=== PATIENT | female | born 1975 | race Caucasian/White ===

== ENCOUNTER 2017-06-24 09:49 | Emergency (ER) | payer SELFPAY ==
[2017-06-24 10:23] VITALS: BP 113/67
--- NOTE | 2017-06-24 10:59 | UC ---
Abdominal Pain Female HPI - HPI Summary HPI Summary: 42 YO FEMALE WITH ONSET OF RUQ ABD PAIN SINCE A TWO WEEK TRIP TO COUNT INCLUDES THE [facility] IN OCTOBER INITIALLY INTERMITTENT NOW CONSTANT X MOS ANOREXIC WORSE WITH FOOD EARLY SATIETY PAST FEW WEEKS FEVER/CHILLS /NIGHT SWEATS NO UTI SYMPTOMS ADB DISTENSION/BLOATING 50 LB WT GAIN TAKING NSAIDS TO CONTROL PAIN - History of Current Complaint Chief Complaint: UCAbdominalPain Stated Complaint: ABD PAIN Time Seen by Provider: 06/24/17 10:31 Hx Obtained From: Patient Hx Last Menstrual Period: menopausal Onset/Duration: Gradual Onset, Lasting Weeks Timing: Constant - NOW Severity Initially: Mild Severity Currently: Severe Pain Intensity: 8 - 10 WHEN NOT ON NSAIDS Pain Scale Used: 0-10 Numeric Location: Discrete At: RUQ Radiates to: Flank Character: Unable to describe Aggravating Factor(s): Food, Deep Breaths Alleviating Factor(s): OTC Analgesics Associated Signs and Symptoms: Positive: Diaphoresis, Fever, Decreased Appetite , Nausea Allergies/Adverse Reactions: Allergies Allergy/AdvReac Type Severity Reaction Status Date / Time Penicillins [PCN] Allergy Hives Verified 06/24/17 10:11 Home Medications: Home Medications Ibuprofen [Advil] 600 mg PO 06/24/17 [History] PMH/Surg Hx/FS Hx/Imm Hx Previously Healthy: Yes - Surgical History Surgical History: None - Family History Known Family History: Negative: Cardiac Disease, Hypertension, Diabetes - Social History Alcohol Use: None Substance Use Type: None Smoking Status (MU): Current Some Day Smoker Review of Systems Constitutional: Negative Skin: Negative Eyes: Negative ENT: Negative Respiratory: Negative Cardiovascular: Negative Gastrointestinal: Abdominal Pain, Nausea Genitourinary: Negative Motor: Negative Neurovascular: Negative Musculoskeletal: Negative Neurological: Negative Psychological: Negative Is Patient Immunocompromised?: No All Other Systems Reviewed And Are Negative: Yes Physical Exam Triage Information Reviewed: Yes Appearance: Well-Appearing, No Pain Distress, Well-Nourished Vital Signs: Initial Vital Signs Temp 99.9 F 06/24/17 10:13 Pulse 99 06/24/17 10:13 Resp 18 06/24/17 10:13 BP 113/67 06/24/17 10:13 Pulse Ox 99 06/24/17 10:13 Eyes: Positive: Conjunctiva Clear, Other: - ANICTERIC SCLERA ENT: Positive: Normal ENT inspection Neck: Positive: Supple, Nontender Respiratory: Positive: Lungs clear, Normal breath sounds, No respiratory distress Cardiovascular: Positive: RRR, No Murmur Abdomen Description: Positive: Distended, Guarding. Negative: Nontender - DIFFUSELY TENDER/WORSE RUQ Bowel Sounds: Positive: Present Musculoskeletal: Positive: ROM Intact, No Edema Neurological: Positive: Alert Psychological Exam: Normal Skin Exam: Normal Abd Pain Female Course/Dx - Course Course Of Treatment: (++) BLOOD UDIP. I ADVISED PT TO GO TO THE ED FOR FURTHER EVALUATION. SHE DECLINED EMS TRANSFER. STATES SHE WILL GO THERE DIRECTLY. ER NOT CALLED PER THERE POLICY OF NOT WANTING CALL FOR NON EMES TRANSFERS. I RELAYED MY CONCERNS RE PTS HX AND EXAM TO HER AND STATED THAT I THINK THIS NEEDS INVESTIGATION TODAY. - Differential Dx/Diagnosis Provider Diagnoses: ABDOMINAL PAIN OF UNCERTAIN CAUSE. MICROSCOPIC HEMATURIA. WT GAIN AND ABD DISTENSTION Discharge - Discharge Plan Condition: Guarded Disposition: TRANS HIGHER LVL OF CARE FAC Referrals: No Primary Care Phys,NOPCP [Primary Care Provider] - Additional Instructions: PLEASE GO DIRECTLY TO THE ER TO HAVE YOUR ABDOMINAL PAIN EVALUATED DON'T EAT
== END 2017-06-24 11:04 | disposition short-term general hospital (02) ==
LOC: UCEAST 09:49
DX: R10.11 Right upper quadrant pain (principal); R31.9 Hematuria, unspecified; R63.5 Abnormal weight gain; R14.0 Abdominal distension (gaseous); Z88.0 Allergy status to penicillin; Z72.0 Tobacco use
CPT/HCPCS: 81003; 81025; 99201; G0463

== ENCOUNTER 2017-06-24 12:03 | Inpatient (IN) | payer SELFPAY ==
[2017-06-24 12:49] LABS: Hematocrit 37 % (35-47); Hemoglobin 12.4 g/dl (12.0-16.0); Mean Corpuscular HGB Conc 34 g/dl (31-36); Mean Corpuscular Hemoglobin 32 pg (27-31); Mean Corpuscular Volume 96 fL (80-97); Mean Platelet Volume 8 um3 (7.4-10.4); Red Blood Count 3.85 10^6/ul (4.0-5.4); Red Cell Distribution Width 13 % (10.5-15); White Blood Count 16.5 10^3/ul (3.5-10.8)
[2017-06-24 13:03] LABS: ALT 20 U/L (7-52); AST 22 U/L (13-39); Albumin 3.4 g/dL (3.2-5.2); Alkaline Phosphatase 65 U/L (34-104); Anion Gap 7 mmol/L (2-11); BUN/Creatinine Ratio 10.5 (8-20); Blood Urea Nitrogen 8 mg/dL (6-24); C Reactive Protein 187.47 mg/L (< 5.00); CO2 Carbon Dioxide 27 mmol/L (22-32); Calcium 8.8 mg/dL (8.6-10.3); Chloride 100 mmol/L (101-111); EGFR African American 106.8 (>60); EGFR Non-African American 83.1 (>60); Globulin 3.2 g/dL (2-4); Glucose 102 mg/dL (70-100); Lipase < 10 U/L (11.0-82.0); Magnesium 1.9 mg/dL (1.9-2.7); Potassium 3.6 mmol/L (3.5-5.0); Sodium 134 mmol/L (133-145); Total Protein 6.6 g/dL (6.4-8.9)
[2017-06-24] MEDS ORDERED: Ondansetron INJ* 2 MG/ML VIAL IV ONE (13:17)
[2017-06-24] MEDS ORDERED: Iohexol 300* (CONTRAST) 10 ML SDV IV ONE (15:35)
[2017-06-24 15:53] LABS: Urine Bacteria 3+ (Absent); Urine Bilirubin Negative (Negative); Urine Glucose Negative (Negative); Urine Nitrite Negative (Negative)
--- NOTE | 2017-06-24 16:43 | RAD ---
CLINICAL HISTORY: Abdominal pain and diarrhea since October, worse in the last 3 months. Requisition [facility] COMPARISON: None TECHNIQUE: Contrast enhanced CT examination of the abdomen and pelvis from the lung bases through the initial tuberosities. The patient received 109 mL Omnipaque 300 intravenously prior to imaging.The patient received oral contrast as well prior to imaging. FINDINGS: VISUALIZED LUNG BASES: The visualized lung bases are grossly clear. There is no pleural effusion. ABDOMEN AND PELVIS: The liver, spleen, pancreas and adrenal glands are grossly normal in appearance. The gallbladder is normal. The kidneys are normal in appearance without focal mass, calcification or signs of hydronephrosis. The oral contrast has progressed as far as the distal descending colon. The small and large bowel are not distended. The adjacent to the cecum in the right lateral abdomen there is a 4 cm collection with a mildly enhancing wall exhibiting air-fluid level (axial image 46). Within this likely abscess there is a 5 mm hypoattenuating focus (coronal image 47) likely representing an appendicolith. This abscess appears to be separate from the adjacent large bowel but contiguous with the distal tip of the appendix (images 44 through 52 on the axial images). More inferiorly the distal appendix measures 9 mm in diameter and does not fill with contrast. More distally the gas and stool-filled colon is normal in appearance. In the right lower quadrant there are a cluster of top normal but not pathologically enlarged lymph nodes (for example coronal image 39). The pelvic viscera is normal in appearance. The left ovarian vein is top normal in diameter measuring 6 mm (axial image 50 and coronal image 48). There are mildly enlarged left periuterine veins measuring just over 6 mm in diameter (axial image 67 and coronal image 60). The abdominal aorta and iliac arteries are normal in course and diameter. There are no sinister bone lesions. IMPRESSION: 1. CT findings are consistent with a 4 cm abscess at the tip of the mildly enlarged appendix possibly related to the appendicolith seen within the abscess lumen. 2. Incidentally noted are mildly enlarged left periuterine veins and a mildly enlarged left ovarian vein. This can be seen in the setting of pelvic congestion syndrome which is characterized by chronic, gravity dependent low abdominal and pelvic pain, the presence of pelvic and lower extremity varicose veins, vague GI symptoms and/or dyspareunia. (The patient's acute abdominal symptoms are most assuredly related to the appendiceal abscess described above).
--- NOTE | 2017-06-24 18:43 | ED ---
Franklyn Sales Tiffany, scribed for Tracy Oneal MD on 06/24/17 at 1443 . Abdominal Pain/Female - HPI Summary HPI Summary: This patient is a 42 year old F presenting to [facility] accompanied by her with a chief complaint of abdominal pain and diarrhea since October 2016 that has worsened in the last 3 months. The patient rates the pain 8/10 in severity. Symptoms aggravated by movement. Symptoms alleviated by nothing. The patient reports that the abdominal pain radiates to her right leg, right arm and right shoulder. She reports a rash on her left thigh. Patient denies taking antibiotics and denies vomiting. The patient visited [facility] in October 2016. She has been passing waxing and waning black tarry stool and having severe pain on her right side since the trip. She took Ibuprofen twice a day (1200 mg) to alleviate the pain, sometimes with food. Patient reports diarrhea every three times she uses the bathroom, which has been steady for the past three months. The diarrhea ranges from brown/red to black. It is loose and sometimes "cakey or pasty". The patient has also gained 40-50 pounds since the trip in October 2016. She reports that she always feels bloated, even if she is hungry. She only eats a little bit when she feels hungry, since her stomach is always upset. She occasionally has normal stool. She reports occasional fever and chills. On 06/17/19, the patient was unable to get out of bed due to abdominal pain. She woke up this morning with the same severe pain she felt on 06/17/19. She hasn't had her menstrual period for almost a year. She thinks she has menopause. - History of Current Complaint Chief Complaint: EDAbdPain Stated Complaint: ABD PAIN FROM CC Time Seen by Provider: 06/24/17 12:31 Hx Obtained From: Patient, Family/Industrial Workers - Hx Last Menstrual Period: possibly menopausal ?: No Onset/Duration: Gradual Onset, Lasting Weeks - Since October 2016, Still Present, Worse Since - The past 3 months, and then 06/19/17 and this am Timing: Constant Severity Initially: Moderate Severity Currently: Severe Pain Intensity: 8 Pain Scale Used: 0-10 Numeric Location: Discrete At: RUQ, Discrete At: RLQ Radiates: Yes Radiates to: Other - right leg, right arm and right shoulder Character: Dull Aggravating Factor(s): Movement Alleviating Factor(s): Nothing Associated Signs and Symptoms: Positive: Blood in Stool - "tarry" sometimes, and dark red sometimes, Diarrhea, Other: - abdominal pain, right leg pain, right arm pain, right shoulder pain, rash on left thigh, black tarry stools, diarrhea, fever, chills. Negative: Fever, Cough, Vaginal Bleeding, Vomiting Allergies/Adverse Reactions: Allergies Allergy/AdvReac Type Severity Reaction Status Date / Time Penicillins [PCN] Allergy Hives Verified 06/24/17 10:11 PMH/Surg Hx/FS Hx/Imm Hx Previously Healthy: Yes - Surgical History Surgery Procedure, Year, and Place: None Infectious Disease History: No Infectious Disease History: Reports: Hx Shingles - 2008, treated Denies: Traveled Outside the [place] in Last 30 Days - Family History Known Family History: Positive: Other - Mother had brain aneurysm, aunt has melanoma cancer Negative: Cardiac Disease, Hypertension, Diabetes - Social History Lives: With Family Alcohol Use: Occasionally Hx Substance Use: No Substance Use Type: Reports: None Hx Tobacco Use: No Smoking Status (MU): Former Smoker Review of Systems Positive: Fever, Chills Cardiovascular: Negative Respiratory: Negative Positive: Abdominal Pain - Right side, Diarrhea, Other - Black tarry stool. Negative: Vomiting Genitourinary: Negative Positive: Other - Right leg pain, right arm pain, right shoulder pain Positive: Other - Rash on left thigh Neurological: Negative Psychological: Normal All Other Systems Reviewed And Are Negative: Yes Physical Exam Triage Information Reviewed: Yes Vital Signs On Initial Exam: Initial Vitals Temp Pulse Resp BP Pulse Ox 97.6 F 99 17 113/62 97 06/24/17 12:10 06/24/17 12:10 06/24/17 12:10 06/24/17 12:10 06/24/17 12:10 Vital Signs Reviewed: Yes Appearance: Positive: Well-Appearing, Well-Nourished, Pain Distress Skin: Positive: Warm, Skin Color Reflects Adequate Perfusion, Other - maculopapular, erythematous rash on left thigh Head/Face: Positive: Normal Head/Face Inspection Eyes: Positive: MIKE, Conjunctiva Clear ENT: Positive: Normal ENT inspection Neck: Positive: Supple, Nontender Respiratory/Lung Sounds: Positive: Clear to Auscultation, Breath Sounds Present - Normal, Other - No respiratory distress Cardiovascular: Positive: Normal, RRR, Pulses are Symmetrical in both Upper and Lower Extremities, Other - Brisk capillary refill Abdomen Description: Positive: No Organomegaly, Soft, Other: - RECTAL EXAM: external skin tags at the anus, non-tender exam, no masses, no fissures or fistula, brown soft stool sent for occult blood testing. Negative: CVA Tenderness (R), CVA Tenderness (L), Distended, Guarding, McBurney's Point Tenderness, Peritoneal Signs, Pulsatile Mass, Splenomegaly Bowel Sounds: Positive: Present Musculoskeletal: Positive: Normal, Strength/ROM Intact Neurological: Positive: Normal, Sensory/Motor Intact, Alert, Oriented to Person Place, Time, Facial Symmetry, Speech Normal Psychiatric: Positive: Normal - Clark Coma Scale Coma Scale Total: 15 Diagnostics - Vital Signs Vital Signs Temp Pulse Resp BP Pulse Ox 06/24/17 12:26 91 98 06/24/17 12:24 118/57 06/24/17 12:10 97.6 F 99 17 113/62 97 - Laboratory Lab Results: Lab Results 06/24/17 06/24/17 06/24/17 Range/Units 12:38 12:38 12:38 WBC 16.5 H (3.5-10.8) 10^3/ul RBC 3.85 L (4.0-5.4) 10^6/ul Hgb 12.4 (12.0-16.0) g/dl Hct 37 (35-47) % MCV 96 (80-97) fL MCH 32 H (27-31) pg MCHC 34 (31-36) g/dl RDW 13 (10.5-15) % Plt Count 254 (150-450) 10^3/ul MPV 8 (7.4-10.4) um3 Neut % (Auto) 82.2 (38-83) % Lymph % (Auto) 9.4 L (25-47) % [place] % (Auto) 7.8 (1-9) % Eos % (Auto) 0 (0-6) % Baso % (Auto) 0.6 (0-2) % Absolute Neuts (auto) 13.5 H (1.5-7.7) 10^3/ul Absolute Lymphs (auto) 1.6 (1.0-4.8) 10^3/ul Absolute Monos (auto) 1.3 H (0-0.8) 10^3/ul Absolute Eos (auto) 0 (0-0.6) 10^3/ul Absolute Basos (auto) 0.1 (0-0.2) 10^3/ul Absolute Nucleated RBC 0.01 10^3/ul Nucleated RBC % 0 Sodium 134 (133-145) mmol/L Potassium 3.6 (3.5-5.0) mmol/L Chloride 100 L (101-111) mmol/L Carbon Dioxide 27 (22-32) mmol/L Anion Gap 7 (2-11) mmol/L BUN 8 (6-24) mg/dL Creatinine 0.76 (0.51-0.95) mg/dL Est GFR ( Amer) 106.8 (>60) Est GFR (Non-Af Amer) 83.1 (>60) BUN/Creatinine Ratio 10.5 (8-20) Glucose 102 H (70-100) mg/dL Lactic Acid 0.7 (0.5-2.0) mmol/L Calcium 8.8 (8.6-10.3) mg/dL Magnesium 1.9 (1.9-2.7) mg/dL Total Bilirubin 0.50 (0.2-1.0) mg/dL AST 22 (13-39) U/L ALT 20 (7-52) U/L Alkaline Phosphatase 65 (34-104) U/L C-Reactive Protein 187.47 H (< 5.00) mg/L Total Protein 6.6 (6.4-8.9) g/dL Albumin 3.4 (3.2-5.2) g/dL Globulin 3.2 (2-4) g/dL Albumin/Globulin Ratio 1.1 (1-3) Lipase < 10 L (11.0-82.0) U/L Beta HCG, Quant 1.65 mIU/mL Result Diagrams: 06/24/17 12:38 06/24/17 12:38 Lab Statement: Any lab studies that have been ordered have been reviewed, and results considered in the medical decision making process. - CT Abd/Pel CT Interpretation Completed By: Radiologist - 1. CT findings are consistent with a 4 cm abscess at the tip of the mildly enlarged appendix possibly related to the appendicolith seen within the abscess lumen. 2. Incidentally noted are mildly enlarged left periuterine veins and a mildly enlarged left ovarian vein. This can be seen in the setting of pelvic congestion syndrome which is characterized by chronic, gravity dependent low abdominal and pelvic pain, the presence of pelvic and lower extremity varicose veins, vague GI symptoms and/or dyspareunia. (The patient's acute abdominal symptoms are most assuredly related to the appendiceal abscess described above). ED physician has reviewed this radiology report and agrees. Re-Evaluation - Re-Evaluation First Eval Re-Evaluation Time: 15:35 Change: Improved Comment: Patient's pain is controlled. She is awaiting CT Abd/Pel report results. Second Eval Re-Evaluation Time: 19:15 - advised of CT results and admit. Pt understands Change: Unchanged Abdominal Pain Fem Course/Dx - Course Course Of Treatment: pt had labs, CT abd pelvis. Given cipro and flagyl for abd organism coverage for appendiceal abscess. given morphine 4mg IV for pain. consulted Dr. Dyson and Dr. Ma - Diagnoses Differential Diagnosis: Positive: Appendicitis, Bowel Obstruction, Constipation , Diverticulitis, Other - parasitic diarrhea, c difficile colitis Provider Diagnoses: Abscess, appendix - Provider Notifications Discussed Care Of Patient With: Shaista Ma - consult Dr. Dyson; 19:00 Dr. Dyson will attempt percutaneous drainage in am after IV abx and admit. Dr. Ma to admit. Discussed again 19:[address] Ma Time Discussed With Above Provider: 18:45 Instructed by Provider To: Admit As Inpatient Discharge - Discharge Plan Condition: Stable Disposition: ADMITTED TO [facility] Referrals: No Primary Care Phys,NOPCP [Primary Care Provider] - Additional Instructions: Try Lamisil cream for fungal toe nail The documentation as recorded by the Franklyn cantu Tiffany accurately reflects the service I personally performed and the decisions made by , Tracy Oneal MD.
[2017-06-24] MEDS ORDERED: Ciprofloxacin 400MG IVPREMIX(* 400 MG/200 ML BAG IVPB ONE (19:27)
[2017-06-24] MEDS ORDERED: metroNIDAZOLE IV 500 MG/100ML* 500 MG/100 ML BAG IVPB ONE (19:27)
[2017-06-24] MEDS ORDERED: Morphine INJ* 4 MG/ML 1 ML CARPUJECT IV ONE (19:31)
[2017-06-24] MEDS ORDERED: Acetaminophen TAB* 325 MG PO ONE (20:49)
[2017-06-24] MEDS ORDERED: NS 0.9% 1000 ML*IV.FLUID IV ONE (20:58)
[2017-06-24 21:06] LABS: Hematocrit 35 % (35-47); Hemoglobin 11.7 g/dl (12.0-16.0); Mean Corpuscular HGB Conc 34 g/dl (31-36); Mean Corpuscular Hemoglobin 32 pg (27-31); Mean Corpuscular Volume 96 fL (80-97); Mean Platelet Volume 8 um3 (7.4-10.4); Red Blood Count 3.64 10^6/ul (4.0-5.4); Red Cell Distribution Width 13 % (10.5-15); White Blood Count 15.6 10^3/ul (3.5-10.8)
[2017-06-24 21:22] LABS: Albumin 3.1 g/dL (3.2-5.2); BUN/Creatinine Ratio 7.8 (8-20); C Reactive Protein 216.29 mg/L (< 5.00); Calcium 8.4 mg/dL (8.6-10.3); EGFR African American 105.2 (>60); EGFR Non-African American 81.8 (>60); Globulin 3.1 g/dL (2-4); Potassium 3.4 mmol/L (3.5-5.0); Total Bilirubin 0.5 mg/dL (0.2-1.0); Total Protein 6.2 g/dL (6.4-8.9)
--- NOTE | 2017-06-24 21:47 | RAD ---
INDICATION: Fever and abdominal pain COMPARISON: None. TECHNIQUE: Single AP portable view of the chest was obtained. FINDINGS: Image quality is compromised due to the relative inferiority of a portable chest x-ray. The heart and mediastinum exhibit normal size and contour. The lungs are grossly clear. There is no evidence of a large pleural effusion. Visualized bones are normal for the patient's age. IMPRESSION: No radiographic evidence for acute cardiopulmonary abnormality on this portable chest x-ray.
--- NOTE | 2017-06-24 21:49 | RAD ---
INDICATION: Further characterization of a periappendiceal abscess. COMPARISON: Same day CT of the abdomen and pelvis. TECHNIQUE: Real time ultrasound images of the right lower quadrant were acquired in cope scale and Doppler color flow. FINDINGS: There is questionable identification of the abscess. Loops of peristalsing bowel are incidentally noted. IMPRESSION: Questionable identification of the tip appendiceal abscess identified on the same day CT of the abdomen and pelvis.
--- NOTE | 2017-06-24 22:18 | HP ---
H&P (Free Text) History and Physical: Surgery H & P Asked by Dr. Oneal to evaluate a pt. with an apparent appendiceal abscess. Ms. Apple is a 42 y.o. female who reports that ever since she returned from [facility] in October, she has been having abdominal discomfort and bloating. She also notes she has gained 40 lbs, and feels her skin in "tight". She has had trouble walking due to the abd. discomfort, but was getting along, until things seemed to escalate in the past 3 months. Again, she wasn't making too much of it till last week when she started to have worsening abdominal pain, nausea, and a mix of diarrhea and constipation. She denies fever, dysuria. She found she was fatigued yesterday and couldn't eat much for Thanksgiving dinner. Today things weren't better so she came to the ER. Here she had a CT scan which shows a collection in the area she has the pain in the right flank. PMHx: denies Meds: ibuprofen, asa ALL: PCN ROS: neg. except post 16 years ago she had "post-eclamsia" with a seizure. SH: quit tob; occ EtOH, neg. IVDA FH: aunt has dementia, and DM PE: general: WDWN female appears flushed Vital Signs 06/24/17 06/24/17 06/24/17 12:10 12:24 12:26 Temperature 97.6 F Pulse Rate 99 91 Respiratory 17 Rate Blood Pressure 113/62 118/57 (mmHg) O2 Sat by Pulse 97 98 Oximetry 06/24/17 06/24/17 06/24/17 12:30 13:00 13:30 Temperature Pulse Rate 88 92 86 Respiratory Rate Blood Pressure 118/73 123/73 122/75 (mmHg) O2 Sat by Pulse 97 98 98 Oximetry 06/24/17 06/24/17 06/24/17 14:00 14:30 15:00 Temperature Pulse Rate 97 89 92 Respiratory Rate Blood Pressure 130/79 130/70 125/67 (mmHg) O2 Sat by Pulse 95 94 93 Oximetry 06/24/17 06/24/17 06/24/17 15:38 16:13 16:58 Temperature Pulse Rate 103 90 Respiratory Rate Blood Pressure 113/63 (mmHg) O2 Sat by Pulse 95 92 Oximetry 06/24/17 06/24/17 06/24/17 18:00 19:00 19:34 Temperature Pulse Rate 98 100 102 Respiratory Rate Blood Pressure 119/57 (mmHg) O2 Sat by Pulse 93 93 94 Oximetry 06/24/17 06/24/17 06/24/17 20:00 20:39 20:40 Temperature 102.1 F Pulse Rate 100 Respiratory 16 Rate Blood Pressure 113/63 (mmHg) O2 Sat by Pulse 92 Oximetry 06/24/17 06/24/17 06/24/17 20:43 21:00 21:30 Temperature Pulse Rate 100 101 98 Respiratory Rate Blood Pressure 113/64 102/78 113/56 (mmHg) O2 Sat by Pulse 93 93 93 Oximetry 06/24/17 06/24/17 22:00 22:12 Temperature 98.2 F Pulse Rate 96 Respiratory Rate Blood Pressure 104/50 (mmHg) O2 Sat by Pulse 94 Oximetry HEENT: pink conjunctivae, moist oral mucosa, neg. cervical adenopathy lungs: clear to ausc. heart: reg. abd: good BS, soft, tender in RUQ/flank, no guarding or rebound, no tenderness at McBurney's pt., neg. CVAT ext: neg. edema Laboratory Results - last 24 hr 06/24/17 06/24/17 06/24/17 12:38 12:38 12:38 WBC 16.5 H RBC 3.85 L Hgb 12.4 Hct 37 MCV 96 MCH 32 H MCHC 34 RDW 13 Plt Count 254 MPV 8 Neut % (Auto) 82.2 Lymph % (Auto) 9.4 L [place] % (Auto) 7.8 Eos % (Auto) 0 Baso % (Auto) 0.6 Absolute Neuts (auto) 13.5 H Absolute Lymphs (auto) 1.6 Absolute Monos (auto) 1.3 H Absolute Eos (auto) 0 Absolute Basos (auto) 0.1 Absolute Nucleated RBC 0.01 Nucleated RBC % 0 Sodium 134 Potassium 3.6 Chloride 100 L Carbon Dioxide 27 Anion Gap 7 BUN 8 Creatinine 0.76 Est GFR ( Amer) 106.8 Est GFR (Non-Af Amer) 83.1 BUN/Creatinine Ratio 10.5 Glucose 102 H Lactic Acid 0.7 Calcium 8.8 Magnesium 1.9 Total Bilirubin 0.50 AST 22 ALT 20 Alkaline Phosphatase 65 C-Reactive Protein 187.47 H Total Protein 6.6 Albumin 3.4 Globulin 3.2 Albumin/Globulin Ratio 1.1 Lipase < 10 L Beta HCG, Quant 1.65 Urine Color Urine Appearance Urine pH Ur Specific [place] Urine Protein Urine Ketones Urine Blood Urine Nitrate Urine Bilirubin Urine Urobilinogen Ur Leukocyte Esterase Urine WBC (Auto) Urine RBC (Auto) Ur Squamous Epith Cells Urine Bacteria Urine Glucose 06/24/17 06/24/17 06/24/17 15:37 20:59 20:59 WBC 15.6 H RBC 3.64 L Hgb 11.7 L Hct 35 MCV 96 MCH 32 H MCHC 34 RDW 13 Plt Count 244 MPV 8 Neut % (Auto) 79.8 Lymph % (Auto) 9.9 L [place] % (Auto) 9.4 H Eos % (Auto) 0.1 Baso % (Auto) 0.8 Absolute Neuts (auto) 12.4 H Absolute Lymphs (auto) 1.5 Absolute Monos (auto) 1.5 H Absolute Eos (auto) 0 Absolute Basos (auto) 0.1 Absolute Nucleated RBC 0.01 Nucleated RBC % 0 Sodium Potassium Chloride Carbon Dioxide Anion Gap BUN Creatinine Est GFR ( Amer) Est GFR (Non-Af Amer) BUN/Creatinine Ratio Glucose Lactic Acid 0.4 L Calcium Magnesium Total Bilirubin AST ALT Alkaline Phosphatase C-Reactive Protein Total Protein Albumin Globulin Albumin/Globulin Ratio Lipase Beta HCG, Quant Urine Color Yellow Urine Appearance Clear Urine pH 6.0 Ur Specific [place] 1.005 L Urine Protein Negative Urine Ketones 1+ H Urine Blood 2+ H Urine Nitrate Negative Urine Bilirubin Negative Urine Urobilinogen Negative Ur Leukocyte Esterase Negative Urine WBC (Auto) Trace(0-5/hpf) Urine RBC (Auto) 2+(6-10/hpf) H Ur Squamous Epith Cells Present H Urine Bacteria 3+ H Urine Glucose Negative 06/24/17 20:59 WBC RBC Hgb Hct MCV MCH MCHC RDW Plt Count MPV Neut % (Auto) Lymph % (Auto) [place] % (Auto) Eos % (Auto) Baso % (Auto) Absolute Neuts (auto) Absolute Lymphs (auto) Absolute Monos (auto) Absolute Eos (auto) Absolute Basos (auto) Absolute Nucleated RBC Nucleated RBC % Sodium 134 Potassium 3.4 L Chloride 102 Carbon Dioxide 23 Anion Gap 9 BUN 6 Creatinine 0.77 Est GFR ( Amer) 105.2 Est GFR (Non-Af Amer) 81.8 BUN/Creatinine Ratio 7.8 L Glucose 93 Lactic Acid Calcium 8.4 L Magnesium Total Bilirubin 0.50 AST 21 ALT 21 Alkaline Phosphatase 64 C-Reactive Protein 216.29 H Total Protein 6.2 L Albumin 3.1 L Globulin 3.1 Albumin/Globulin Ratio 1.0 Lipase Beta HCG, Quant Urine Color Urine Appearance Urine pH Ur Specific [place] Urine Protein Urine Ketones Urine Blood Urine Nitrate Urine Bilirubin Urine Urobilinogen Ur Leukocyte Esterase Urine WBC (Auto) Urine RBC (Auto) Ur Squamous Epith Cells Urine Bacteria Urine Glucose CT: appendiceal abscess A/P: Probable appendiceal abscess; will manage with abx and IVF, percutaneous drainage in AM (I discussed with Dr. Mejia). If worsens, may need OR. [facility]
[2017-06-24] MEDS ORDERED: Morphine INJ* 2 MG/ML 1 ML SYRINGE (TWO MG - NEW SYRINGE VERSION) IV PRN (22:23)
[2017-06-24] MEDS ORDERED: Famotidine IV * 20 MG in NS 0.9% 100 ML* 100 ML IVPB SCH (23:00)
[2017-06-24] MEDS: D5W 1/2 NS KCl 20 Meq 1000 ML* 1,000 ML IV SCH (23:55)
[2017-06-24] MEDS: Famotidine IV* 10 MG/ML 2 ML (20 mg) IV SCH (23:58)
[2017-06-25] MEDS: metroNIDAZOLE IV 500 MG/100ML* 500 MG/100 ML BAG IVPB SCH ×3 (05:00→20:56)
[2017-06-25] MEDS: D5W 1/2 NS KCl 20 Meq 1000 ML* 1,000 ML IV SCH ×2 (07:19→16:30)
--- NOTE | 2017-06-25 08:46 | PN ---
Progress Note - Progress Note Date of Service: 06/25/17 Note: Surgery Ms. Apple reports she has a headache now, but overall feels better with hydration. She feels thirsty. Vital Signs 06/24/17 06/24/17 06/24/17 12:10 12:24 12:26 Temperature 97.6 F Pulse Rate 99 91 Respiratory 17 Rate Blood Pressure 113/62 118/57 (mmHg) O2 Sat by Pulse 97 98 Oximetry 06/24/17 06/24/17 06/24/17 12:30 13:00 13:30 Temperature Pulse Rate 88 92 86 Respiratory Rate Blood Pressure 118/73 123/73 122/75 (mmHg) O2 Sat by Pulse 97 98 98 Oximetry 06/24/17 06/24/17 06/24/17 14:00 14:30 15:00 Temperature Pulse Rate 97 89 92 Respiratory Rate Blood Pressure 130/79 130/70 125/67 (mmHg) O2 Sat by Pulse 95 94 93 Oximetry 06/24/17 06/24/17 06/24/17 15:38 16:13 16:58 Temperature Pulse Rate 103 90 Respiratory Rate Blood Pressure 113/63 (mmHg) O2 Sat by Pulse 95 92 Oximetry 06/24/17 06/24/17 06/24/17 18:00 19:00 19:34 Temperature Pulse Rate 98 100 102 Respiratory Rate Blood Pressure 119/57 (mmHg) O2 Sat by Pulse 93 93 94 Oximetry 06/24/17 06/24/17 06/24/17 20:00 20:39 20:40 Temperature 102.1 F Pulse Rate 100 Respiratory 16 Rate Blood Pressure 113/63 (mmHg) O2 Sat by Pulse 92 Oximetry 06/24/17 06/24/17 06/24/17 20:43 21:00 21:30 Temperature Pulse Rate 100 101 98 Respiratory Rate Blood Pressure 113/64 102/78 113/56 (mmHg) O2 Sat by Pulse 93 93 93 Oximetry 06/24/17 06/24/17 06/24/17 22:00 22:12 23:49 Temperature 98.2 F 99.1 F Pulse Rate 96 84 Respiratory 18 Rate Blood Pressure 104/50 106/53 (mmHg) O2 Sat by Pulse 94 95 Oximetry 06/25/17 06/25/17 06/25/17 00:00 01:07 01:09 Temperature 99.1 F Pulse Rate 84 Respiratory 18 18 18 Rate Blood Pressure 106/53 (mmHg) O2 Sat by Pulse 95 Oximetry 06/25/17 06/25/17 06/25/17 03:33 03:39 05:54 Temperature 98.6 F Pulse Rate 82 Respiratory 16 18 16 Rate Blood Pressure 101/53 (mmHg) O2 Sat by Pulse 95 Oximetry 06/25/17 06/25/17 07:21 07:27 Temperature 101.3 F Pulse Rate 88 Respiratory 16 17 Rate Blood Pressure 108/61 (mmHg) O2 Sat by Pulse 95 94 Oximetry Abd: good BS, soft, tender in RUQ/flank. Intake & Output 06/24/17 06/25/17 06/25/17 22:59 06:59 14:59 Intake Total 2750 115 933 Output Total 750 0 Balance 2750 -635 933 Weight 180 lb 180 lb Intake: IV Fluids 2750 10 933 IVPB 105 ABX - FLAGYL 105 Oral 0 Output: Urine 750 0 A/P: for perc. drain later this morning. Will order CBC for tomorrow.
[2017-06-25] MEDS: Famotidine IV* 10 MG/ML 2 ML (20 mg) IV SCH ×2 (08:47→20:54)
[2017-06-25] MEDS: Ciprofloxacin 400MG IVPREMIX(* 400 MG/200 ML BAG IVPB SCH ×2 (08:47→22:08)
[2017-06-25] MEDS: Ondansetron INJ* 2 MG/ML VIAL IV PRN (09:10)
[2017-06-25] MEDS ORDERED: fentaNYL* 50 MCG/ML 2 ML VIAL (100 MCG VIAL) ONE (10:14)
--- NOTE | 2017-06-25 11:29 | RAD ---
CPT II Codes: 6100F INDICATION: Fever and pain with documented tip appendiceal abscess. COMPARISON: CT abdomen pelvis June 24, 2017 ANESTHESIA: 1% lidocaine injected locally. The patient received intravenous fentanyl. Cardiopulmonary status was monitored by Dr. Dyson and the IR nurse. PROCEDURE NOTE: The benefits and risks of procedure explained to the patient and the patient signed informed consent. Multiple images of the right lower quadrant were obtained. The small subhepatic abscess in question was identified and a percutaneous tract was determined. A time out was performed before beginning the procedure. The patient was prepped and draped in the usual sterile fashion. The skin and tissue overlying the fluid collection were anesthetized with 1% lidocaine. Percutaneously, a 20-gauge spinal needle was inserted into the collection under sonographic guidance. Approximately 6 mL of beige, opaque malodorous fluid was aspirated. The sample of fluid was sent to the laboratory for testing according to Dr. Ma's orders. The post procedure ultrasound demonstrates no evidence of hematoma. The patient tolerated procedure well without incident. IMPRESSION: Uncomplicated ultrasound-guided aspiration of the small, tip appendiceal abscess. Approximately 6 mL of purulent fluid was delivered to the laboratory.
[2017-06-25] MEDS ORDERED: Acetaminophen TAB* 325 MG ONE (13:30)
[2017-06-25] MEDS: Acetaminophen TAB* 325 MG PO PRN ×2 (13:31→19:49)
[2017-06-26] MEDS: D5W 1/2 NS KCl 20 Meq 1000 ML* 1,000 ML IV SCH ×3 (01:31→17:56)
[2017-06-26] MEDS: metroNIDAZOLE IV 500 MG/100ML* 500 MG/100 ML BAG IVPB SCH ×3 (04:53→21:05)
[2017-06-26 05:32] LABS: Hematocrit 31 % (35-47); Hemoglobin 10.8 g/dl (12.0-16.0); Mean Corpuscular HGB Conc 35 g/dl (31-36); Mean Corpuscular Hemoglobin 34 pg (27-31); Mean Corpuscular Volume 96 fL (80-97); Mean Platelet Volume 8 um3 (7.4-10.4); Red Blood Count 3.23 10^6/ul (4.0-5.4); Red Cell Distribution Width 13 % (10.5-15); White Blood Count 10.7 10^3/ul (3.5-10.8)
--- NOTE | 2017-06-26 08:29 | PN ---
Progress Note - Progress Note Date of Service: 06/26/17 Note: Surgery Today Ms. Apple does not feel better, feels like it's hard to move. She is having diarrheal BMs and tolerating clear liquids. She expresses concern about the cost of care as she does not have insurance. Vital Signs 06/25/17 06/25/17 06/25/17 10:20 11:00 11:03 Temperature 99.4 F 98.0 F 98.9 F Pulse Rate 76 73 74 Respiratory 16 16 16 Rate Blood Pressure 113/59 115/58 110/42 (mmHg) O2 Sat by Pulse 99 99 97 Oximetry 06/25/17 06/25/17 06/25/17 11:35 15:18 18:31 Temperature 99.0 F 99.8 F 99.2 F Pulse Rate 76 78 64 Respiratory 17 17 17 Rate Blood Pressure 113/58 106/52 101/51 (mmHg) O2 Sat by Pulse 93 96 97 Oximetry 06/25/17 06/25/17 06/25/17 19:49 20:00 23:20 Temperature 99.3 F Pulse Rate 74 Respiratory 16 16 16 Rate Blood Pressure 110/57 (mmHg) O2 Sat by Pulse 97 95 Oximetry 06/26/17 03:24 Temperature 99.6 F Pulse Rate 83 Respiratory 14 Rate Blood Pressure 98/51 (mmHg) O2 Sat by Pulse 96 Oximetry Abd: good BS, soft, tender in right flank, slight CVAT right side. Intake & Output 06/25/17 06/26/17 06/26/17 22:59 06:59 14:59 Intake Total 1081 1328 Output Total 1475 1600 Balance -394 -272 Intake: IV Fluids 296 928 D5 1/2 NS 20KCL 296 IVPB 215 200 ABX - FLAGYL 110 Oral 570 200 Output: Urine 1300 1600 Liquid Stool 175 Other: # Bowel Movements 1 Estimated Stool Amount Medium Laboratory Results - last 24 hr 06/26/17 05:05 WBC 10.7 RBC 3.23 L Hgb 10.8 L Hct 31 L MCV 96 MCH 34 H MCHC 35 RDW 13 Plt Count 241 MPV 8 Neut % (Auto) 76.5 Lymph % (Auto) 13.0 L [place] % (Auto) 10.1 H Eos % (Auto) 0.2 Baso % (Auto) 0.2 Absolute Neuts (auto) 8.2 H Absolute Lymphs (auto) 1.4 Absolute Monos (auto) 1.1 H Absolute Eos (auto) 0 Absolute Basos (auto) 0 Absolute Nucleated RBC 0 Nucleated RBC % 0 A/P: Improving by vitals and labs, but subjectively no improvement. Will check sono of abscess tomorrow and based on findings will consider OR. Case management aware of lack of insurance.
[2017-06-26] MEDS: Ondansetron INJ* 2 MG/ML VIAL IV PRN (08:33)
[2017-06-26] MEDS: Acetaminophen TAB* 325 MG PO PRN ×3 (08:33→21:01)
[2017-06-26] MEDS: Famotidine IV* 10 MG/ML 2 ML (20 mg) IV SCH ×2 (08:34→21:02)
[2017-06-26] MEDS: Ciprofloxacin 400MG IVPREMIX(* 400 MG/200 ML BAG IVPB SCH ×2 (09:52→22:11)
[2017-06-26 10:23] LABS: Urine Bacteria 1+ (Absent); Urine Bilirubin Negative (Negative); Urine Glucose Negative (Negative); Urine Nitrite Negative (Negative)
[2017-06-27] MEDS: D5W 1/2 NS KCl 20 Meq 1000 ML* 1,000 ML IV SCH ×2 (02:43→11:33)
[2017-06-27] MEDS: Acetaminophen TAB* 325 MG PO PRN ×2 (03:50→11:29)
[2017-06-27] MEDS: metroNIDAZOLE IV 500 MG/100ML* 500 MG/100 ML BAG IVPB SCH ×3 (04:55→21:54)
[2017-06-27] MEDS: Famotidine IV* 10 MG/ML 2 ML (20 mg) IV SCH ×2 (09:09→21:54)
[2017-06-27 09:48] LABS: Hematocrit 35 % (35-47); Hemoglobin 11.9 g/dl (12.0-16.0); Mean Corpuscular HGB Conc 34 g/dl (31-36); Mean Corpuscular Hemoglobin 33 pg (27-31); Mean Corpuscular Volume 96 fL (80-97); Mean Platelet Volume 8 um3 (7.4-10.4); Red Blood Count 3.65 10^6/ul (4.0-5.4); Red Cell Distribution Width 13 % (10.5-15); White Blood Count 10.8 10^3/ul (3.5-10.8)
[2017-06-27] MEDS: Ciprofloxacin 400MG IVPREMIX(* 400 MG/200 ML BAG IVPB SCH ×2 (10:33→23:13)
--- NOTE | 2017-06-27 12:47 | RAD ---
INDICATION: Evaluate appendiceal abscess. COMPARISON: Most recent ultrasound examination is dated June 25, 2017 TECHNIQUE: Real time ultrasound images of the right lower quadrant were acquired in cope scale and Doppler color flow. FINDINGS: Again seen is an abscess abutting the inferior margin of the right lobe of the liver. There is evidence of gas in the lumen as was seen on the CT examination dated June 24, 2017. The abscess measures 6.7 x 5.6 x 6.7 cm, previously 5.9 x 4.6 x 8.1 cm. IMPRESSION: Apparent increase in the size of the appendiceal abscess relative to the ultrasound acquired 2 days earlier.
[2017-06-27] MEDS ORDERED: Bupivacaine 0.5% SDV PF* 30 ML VIAL ONE (14:54)
[2017-06-27] MEDS ORDERED: Midazolam* 1 MG/ML 2 ML VIAL (2 MG) ONE (15:22)
[2017-06-27] MEDS ORDERED: fentaNYL* 50 MCG/ML 2 ML VIAL (100 MCG VIAL) ONE ×5 (15:22→18:42)
[2017-06-27] MEDS ORDERED: Propofol* 10 MG/ML 20 ML BTL IV PUSH ONE ×2 (15:56→15:57)
[2017-06-27] MEDS ORDERED: Lidocaine 2% PF * 5 ML VIAL ONE (15:57)
[2017-06-27] MEDS ORDERED: Ondansetron INJ* 2 MG/ML VIAL ONE (15:57)
[2017-06-27] MEDS ORDERED: Succinylcholine* 20 MG/ML 10 ML VIAL ONE (15:57)
[2017-06-27] MEDS ORDERED: Dexamethasone IV* 4 MG/ML 1 ML (4 MG) ONE (15:57)
--- NOTE | 2017-06-27 18:41 | PN ---
Progress Note - Progress Note Date of Service: 06/27/17 Note: Brief Operative Note: Preop Dx: Appendicitis w/ Abscess Postop Dx: same Procedure: Laparoscopic, converted to open appendectomy w/ drainage of abscess Anesthesia: GET Surgeon: David Asst: ANKIT Nelson Fluids: 1500 ml RL EBL: 50 ml Drains: 1 CHYNA Specimen: portion appendix C&S taken from abscess Findings: dictated
[2017-06-27] MEDS ORDERED: HYDROmorphone INJ* 1 MG/ML CARPUJECT SYRINGE ONE (18:42)
[2017-06-27] MEDS: fentaNYL* 50 MCG/ML 2 ML VIAL (100 MCG VIAL) IV PRN ×3 (18:45→19:07)
[2017-06-27] MEDS ORDERED: NS 0.9% 500 ML* 500 ML IV PRN (18:46)
[2017-06-27] MEDS: HYDROmorphone INJ* 1 MG/ML CARPUJECT SYRINGE IV PRN ×3 (18:48→19:15)
[2017-06-27] MEDS ORDERED: Morphine PCA ADULT* 5 MG/ML 30 ML PCA SCH (19:00)
[2017-06-27] MEDS ORDERED: Morphine PCA ADULT* 5 MG/ML 30 ML ONE (19:27)
[2017-06-27] MEDS ORDERED: Metoclopramide IV* 5 MG/ML 2 ML VIAL ONE (19:33)
[2017-06-27] MEDS ORDERED: Ketorolac INJ* 30 MG/ML 1 ML VIAL ONE (19:41)
[2017-06-27] MEDS: Ketorolac INJ* 30 MG/ML 1 ML VIAL IV PUSH SCH (19:42)
[2017-06-28] MEDS: Ketorolac INJ* 30 MG/ML 1 ML VIAL IV PUSH SCH ×4 (02:20→19:57)
[2017-06-28] MEDS: D5W 1/2 NS KCl 20 Meq 1000 ML* 1,000 ML IV SCH ×3 (04:08→21:10)
[2017-06-28] MEDS: metroNIDAZOLE IV 500 MG/100ML* 500 MG/100 ML BAG IVPB SCH ×3 (04:58→21:10)
[2017-06-28 05:43] LABS: Hematocrit 33 % (35-47); Hemoglobin 10.9 g/dl (12.0-16.0); Mean Corpuscular HGB Conc 33 g/dl (31-36); Mean Corpuscular Hemoglobin 32 pg (27-31); Mean Corpuscular Volume 97 fL (80-97); Mean Platelet Volume 9 um3 (7.4-10.4); Red Blood Count 3.37 10^6/ul (4.0-5.4); Red Cell Distribution Width 14 % (10.5-15); White Blood Count 12.1 10^3/ul (3.5-10.8)
[2017-06-28 06:06] LABS: BUN/Creatinine Ratio 10.9 (8-20); Calcium 7.8 mg/dL (8.6-10.3); EGFR African American 130.2 (>60); EGFR Non-African American 101.3 (>60); Potassium 4.7 mmol/L (3.5-5.0)
[2017-06-28] MEDS: Famotidine IV* 10 MG/ML 2 ML (20 mg) IV SCH ×2 (08:45→22:50)
[2017-06-28] MEDS: Ciprofloxacin 400MG IVPREMIX(* 400 MG/200 ML BAG IVPB SCH ×2 (10:13→22:57)
--- NOTE | 2017-06-28 14:00 | PN ---
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 Objective: Temp Pulse Resp BP Pulse Ox 98.0 F 74 16 92/61 96 06/28/17 07:16 06/28/17 11:28 06/28/17 11:28 06/28/17 11:28 06/28/17 11:00 Intake & Output 06/26/17 06/27/17 06/28/17 06/29/17 06:59 06:59 06:59 06:59 Intake Total 4225 3856 6247 Output Total 4305 2610 1995 350 Balance -80 1246 4252 -350 Intake: IV Fluids 2830 2531 5787 ABX - CIPROFLOXACIN 200 519 ABX - FLAGYL 113 D5 1/2 NS 20KCL 969 1098 2955 LR 1700 NS 500 IVPB 625 375 ABX - FLAGYL 110 320 Oral 770 950 460 Output: CHYNA #1 120 50 Urine 4100 2600 550 100 Hoffman 1325 200 Liquid Stool 205 10 Other: Estimated Void Medium Date of Last Bowel 1 06/26/17 Movement # Bowel Movements 1 0 Estimated Stool Amount Medium Small Estimated Blood Loss 50 Comment # Voids 3 PEX: Comfortable Lungs are clear Abd is soft and slightly distended. Dressing is intact CHYNA with some serosanguinous fluid in bulb Laboratory Results - last 24 hr 06/28/17 06/28/17 04:16 04:16 WBC 12.1 H RBC 3.37 L Hgb 10.9 L Hct 33 L MCV 97 MCH 32 H MCHC 33 RDW 14 Plt Count 299 MPV 9 Neut % (Auto) 85.8 H Lymph % (Auto) 7.0 L [place] % (Auto) 6.7 Eos % (Auto) 0 Baso % (Auto) 0.5 Absolute Neuts (auto) 10.4 H Absolute Lymphs (auto) 0.8 L Absolute Monos (auto) 0.8 Absolute Eos (auto) 0 Absolute Basos (auto) 0.1 Absolute Nucleated RBC 0 Nucleated RBC % 0 Sodium 137 Potassium 4.7 Chloride 107 Carbon Dioxide 24 Anion Gap 6 BUN 7 Creatinine 0.64 Est GFR ( Amer) 130.2 Est GFR (Non-Af Amer) 101.3 BUN/Creatinine Ratio 10.9 Glucose 195 H Calcium 7.8 L Assessment: POD#1 s/p open appendectomy with abscess drainage Ileus Plan: Continue IV abx Increase activity Pul toilet PPI and subq heparin D/C hoffman Advance diet as tolerated
[2017-06-28] MEDS: Heparin VIAL(*) 5000 UNITS/ML VIAL (FIVE THOUSAND) SUBCUT SCH ×2 (15:09→22:58)
--- NOTE | 2017-06-28 18:33 | OP ---
DATE OF OPERATION: 06/27/17 - ROOM #334 DATE OF : 73 SURGEON: Yehuda Hernandez MD FINISH MACHINE TENDER: ANKIT Miranda ANESTHESIOLOGIST: Dr. Isidro ANESTHESIA: General. PRE-OP DIAGNOSIS: Perforated retrocecal appendicitis with abscess. POST-OP DIAGNOSIS: Perforated retrocecal appendicitis with abscess. OPERATIVE PROCEDURE: Diagnostic laparoscopy with conversion to open appendectomy and retrocecal abscess drainage. ESTIMATED BLOOD LOSS: 50 cc. FLUIDS: 1500 cc of lactated Ringer's. URINE OUTPUT: Approximately 100 cc. SPECIMENS: Portion of appendix and culture and sensitivity taken from abscess. DRAINS: Number 10 CHYNA drain in right upper quadrant. COMPLICATIONS: None. WOUND CLASSIFICATION: 4. FINDINGS: The patient had a large abscess retrocecally in the retroperitoneum below the liver. There are dense adhesions to the lateral wall up to the hepatic flexure. The terminal ileum and cecum appeared to be normal. The abscess was drained laparoscopically; however, I was unable to mobilize the cecum and ascending colon adequately to identify the retrocecal appendix and the procedure was converted to an open procedure. Here, I was able to identify a normal base to the appendix extending up into the abscess cavity. A portion of the appendix was then removed and the base stapled with an EndoGIA stapler. The abscess was then drained with a number 10 CHYNA drain. BRIEF HISTORY: Ms. Martha Apple is a 42-year-old woman presented to the emergency room over the weekend with several weeks of severe right-sided abdominal discomfort. She actually gets some intermittent abdominal pain over the past several months, but has not sought care. She had some fevers, shakes and chills intermittently. She has not had any loose bowel movements or blood per rectum. On presentation, she was noted to have a white blood cell count of 16,000. A CT scan showed rather large right-sided apparent retrocecal/retroperitoneal abscess with a normal base to the appendix, however, there was an appendicolith and appendix extending into the abscess noted on CT scan. She was started on IV antibiotics. She underwent an unsuccessful drainage percutaneously over the weekend. She has had persistent fever and is still having significant abdominal discomfort despite being on antibiotics. A repeat ultrasound of the abscess cavity showed an enlarged size today, and after reviewing her history, physical exam, workup and persistent discomfort and the fact that the abscess is increasing in size, not able to be drained, the decision has been made and recommendations for her to be taken to the operating room for laparoscopy, possible laparotomy. The procedure was discussed with the patient and her significant other and the risks, but not limited to bleeding, infection, abdominal abscess formation, injury to peritoneal and retroperitoneal structures, possibility of an open procedure with bowel resection, and even possibility of an ostomy. Risk of general anesthesia, deep vein thrombosis, pulmonary embolism were also discussed. DESCRIPTION OF PROCEDURE: Written informed consent was obtained, the abdomen was marked with indelible ink and preoperative antibiotics were administered. The patient was taken to the operating room, placed in the supine position. Sequential compression devices and warming blanket were applied. General anesthesia was administered. The Bowman catheter was inserted. The abdomen was prepped and draped in usual sterile fashion. Time-out verification was completed. Initially, a vertical incision was made just above the umbilicus at the midline and the peritoneal cavity was entered under direct vision. A 12-mm blunt port was inserted and the abdomen was insufflated to 15 mmHg. A 5-mm left lower abdominal port and a second 5-mm suprapubic port were placed. On examination, there was some mild distension of the small bowel; however, the terminal ileum and cecum appeared to be normal. It appeared that the ascending colon up to the hepatic flexure was quite adherent to the lateral and anterior abdominal wall with the cecum appearing to be normal. I initially worked to mobilize the lateral peritoneal reflection along the white line of [place] starting at the terminal ileum and moving superiorly to mobilize the cecum up in an attempt to enter posterior to the colon where the abscess was noted to be on CT scan. With careful blunt and sharp dissection, I was able to mobilize the right colon all the way up to the hepatic flexure off the anterior abdominal wall, here I entered a rather large abscess with a large amount of creamy pus, which was drained with the irrigation suction device. Cultures were sent. Also noted was the appendicolith noted on Ct scan that was in the abscess cavity and I was able to remove this in its entirety with a large grasper. I then continued to attempt to mobilize the cecum and proximal right and ascending colon medially, but I was unable to identify the appendix at its base. This was noted to be normal on CT scan, but it was quite indurated and inflamed in this area, and after multiple attempts to continued mobilization and identify the base of the appendix, I felt that this was not possible and a decision was made to proceed with an open procedure. Next, a vertical incision was made centered around the umbilicus, carried down to the fascia and peritoneal cavity was entered. The dissection area was identified. We were able to this time easily mobilize the cecum more medially and identified the ureter posteriorly protecting from injury throughout. There was quite a significant indurated area up along the hepatic flexure within the liver, I did not attempt to divide or mobilize this. Under direct vision and with simple finger dissection, I was able to identify the base of the appendix as it ran posterior to the colon up into the abscess cavity. The base of the appendix was normal. I divided this with an EndoGIA 30 mm flanagan load and the suture line was oversewn with interrupted 3-0 silk suture. I took a significant portion of the appendix as it entered up into the cavity and this was then divided leaving the exposed lumen to drain. This was in communication with the abscess cavity, which was slightly more superior and I did not attempt to completely remove all of the appendix as it was quite adherent and indurated to the colon itself in the inflammatory process. Once this was completed, I thoroughly irrigated all 4 quadrants of the abdomen. A #10 CHYNA drain was then placed up into the abscess cavity, brought out along the lateral right gutter and out through a separate stab wound in the right side of the abdominal wall. Hemostasis was assured. All needle, lap counts, and instrument counts were reported as correct. The midline fascia was closed with interrupted #1 Vicryl suture. The skin was approximated with a stapling device. Dry sterile dressings were applied. The patient tolerated the procedure well, sent to recovery room in stable condition. [id number]/[facility] #: [id number] [facility]
[2017-06-29] MEDS: Ketorolac INJ* 30 MG/ML 1 ML VIAL IV PUSH SCH ×4 (02:06→20:23)
[2017-06-29] MEDS: metroNIDAZOLE IV 500 MG/100ML* 500 MG/100 ML BAG IVPB SCH ×3 (05:12→21:48)
[2017-06-29] MEDS: Heparin VIAL(*) 5000 UNITS/ML VIAL (FIVE THOUSAND) SUBCUT SCH ×3 (05:55→21:48)
[2017-06-29] MEDS: D5W 1/2 NS KCl 20 Meq 1000 ML* 1,000 ML IV SCH (06:58)
[2017-06-29] MEDS: Famotidine IV* 10 MG/ML 2 ML (20 mg) IV SCH ×2 (07:58→21:48)
[2017-06-29] MEDS ORDERED: Morphine INJ* 2 MG/ML 1 ML SYRINGE (TWO MG - NEW SYRINGE VERSION) IV PRN (08:51)
[2017-06-29] MEDS ORDERED: NS 0.9% 1000 ML* 1,000 ML IV SCH (09:00)
[2017-06-29] MEDS: Ciprofloxacin 400MG IVPREMIX(* 400 MG/200 ML BAG IVPB SCH ×2 (10:37→23:06)
--- NOTE | 2017-06-29 11:06 | PN ---
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-she has minimal pain Passing a small amount of flatus-no N/V Objective: Temp Pulse Resp BP Pulse Ox 97.3 F 57 18 107/62 98 06/29/17 07:26 06/29/17 07:26 06/29/17 08:00 06/29/17 07:26 06/29/17 08:08 Intake & Output 06/27/17 06/28/17 06/29/17 06/30/17 06:59 06:59 06:59 06:59 Intake Total 3856 6247 5246 Output Total 2610 1995 2920 0 Balance 1246 4252 2326 0 Intake: IV Fluids 2531 5787 3571 ABX - CIPROFLOXACIN 200 519 410 ABX - FLAGYL 113 211 D5 1/2 NS 20KCL 1098 2955 2950 LR 1700 NS 500 IVPB 375 ABX - FLAGYL 320 Oral 612 935 8027 Output: CHYNA #1 120 120 Urine 2600 550 2600 0 Bowman 1325 200 Liquid Stool 10 Other: Estimated Void Medium Date of Last Bowel 06/26/17 Movement # Bowel Movements 0 Estimated Stool Amount Small Estimated Blood Loss 50 Comment # Voids 3 PEX: Comfortable Lungs are clear Abd is soft and slightly distended. A few bowel sounds are present. CHYNA in place with some serosanguinous fluid in bulb. Dressing midline intact. Ext without edema No labs Cultures from OR reviewed. Assessment: POD# 2 open appendectomy with drainage of abscess Post op ileus Plan: Continue IV abx Await final cultures D/C SCUBA DIVING INSTRUCTOR Full liquids, decrease IVF H2 yesenia and subq heparin Recheck labs in AM
[2017-06-30] MEDS: Ketorolac INJ* 30 MG/ML 1 ML VIAL IV PUSH SCH ×2 (02:47→08:10)
[2017-06-30 05:56] LABS: Hematocrit 34 % (35-47); Hemoglobin 11.3 g/dl (12.0-16.0); Mean Corpuscular HGB Conc 33 g/dl (31-36); Mean Corpuscular Hemoglobin 32 pg (27-31); Mean Corpuscular Volume 97 fL (80-97); Mean Platelet Volume 8 um3 (7.4-10.4); Red Blood Count 3.51 10^6/ul (4.0-5.4); Red Cell Distribution Width 13 % (10.5-15); White Blood Count 9.5 10^3/ul (3.5-10.8)
[2017-06-30 05:58] LABS: Add Diff/Slide Review? Slide Review Added; Comments Flag Yes
[2017-06-30] MEDS: metroNIDAZOLE IV 500 MG/100ML* 500 MG/100 ML BAG IVPB SCH ×2 (05:58→13:13)
[2017-06-30] MEDS: Heparin VIAL(*) 5000 UNITS/ML VIAL (FIVE THOUSAND) SUBCUT SCH ×2 (05:59→14:47)
[2017-06-30 06:11] LABS: BUN/Creatinine Ratio 6.4 (8-20); Calcium 8.6 mg/dL (8.6-10.3); EGFR African American 103.7 (>60); EGFR Non-African American 80.6 (>60); Potassium 4.2 mmol/L (3.5-5.0)
[2017-06-30] MEDS: Famotidine IV* 10 MG/ML 2 ML (20 mg) IV SCH (08:10)
[2017-06-30] MEDS: Ciprofloxacin 400MG IVPREMIX(* 400 MG/200 ML BAG IVPB SCH (09:39)
[2017-06-30] MEDS ORDERED: Ketorolac INJ* 30 MG/ML 1 ML VIAL IV PRN (11:43)
[2017-06-30 12:17] VITALS: BP 110/60
--- NOTE | 2017-06-30 13:01 | PN ---
Progress Note - Progress Note Date of Service: 06/30/17 Note: Surgery Progress: S: Wants to go home. Denies sig pain. Jyoti full liq diet. Ambulating well. O: Vital Signs - 8 hr 06/30/17 06/30/17 06/30/17 07:26 07:45 08:00 Temperature 97.9 F Pulse Rate 58 50 Respiratory 14 18 14 Rate Blood Pressure 124/64 127/76 (mmHg) O2 Sat by Pulse 98 Oximetry 06/30/17 11:58 Temperature 98.0 F Pulse Rate 58 Respiratory 16 Rate Blood Pressure 110/60 (mmHg) O2 Sat by Pulse 99 Oximetry Intake and Output Last 24 Hours 06/28/17 06/29/17 06/30/17 07/01/17 06:59 06:59 06:59 06:59 Intake Total 6247 5246 1895 1735 Output Total 1994 2920 1680 745 Balance 4252 2326 215 990 Intake: IV Fluids 5787 3571 635 ABX - CIPROFLOXACIN 519 410 430 ABX - FLAGYL 113 211 205 D5 1/2 NS 20KCL 2955 2950 LR 1700 NS 500 IVPB 1525 ABX - CIPROFLOXACIN 100 ABX - FLAGYL 85 D5 1/2 NS 20KCL 340 NS (0.9%) 1000 Oral 460 1675 1260 210 Output: CHYNA #1 120 120 180 45 Urine 550 2600 1500 700 Bowman 1325 200 Other: # Bowel Movements 0 0 Estimated Blood Loss 50 Comment PE: Gen: appears well; NAD Heart: reg Lungs: clear ant Abd: incision clean;small amt serous drainage from open inferior wound; dsg changed; soft; min incisional tenderness only; CHYNA: light clear serosang. Labs: Laboratory Tests 06/30/17 05:42 WBC 9.5 Hgb 11.3 L P3 ok A: s/p lap converted to laparotomy for appendectomy and drainage abscess, doing well P: consider change to po abx and home; adv diet; heplock IV; will d/w Dr. Hernandez
--- NOTE | 2017-07-01 13:38 | DS ---
DATE OF ADMISSION: 06/24/17 DATE OF DISCHARGE: 06/30/17 ATTENDING SURGEON: Dr. Yehuda Hernandez * (ANKIT Miranda dictating). HOSPITAL COURSE: The patient was admitted on 06/24/17 with evidence of an appendiceal abscess. Her history is outlined in her preadmission history and physical. She was admitted and begun on IV ciprofloxacin and metronidazole. She underwent aspiration of the abscess under ultrasound guidance on 06/25/17. This returned in 6 mL of purulent fluid, which was submitted for culture. Culture results did grow out multiple organisms including Streptococcus anginosus, E. coli and B. fragilis (see separate report). These cultures were confirmed on subsequent culture taken intra-operatively. The patient was not improving clinically, in fact spiked the temperature to 102.3 in the promotion producer hours of 06/27/17. She was taken to the operating room on 06/27/[address] Hernandez. He performed diagnostic laparoscopy with drainage of abscess cavity and removal of fecalith. He converted to an open laparotomy to complete appendectomy and drainage of appendiceal abscess. A Severiano-Rowell drain was left in place. The patient was continued postoperatively on IV Cipro and Flagyl , pending final cultures and sensitivities. She continued to improve and remained afebrile with a gradual improvement in pain control and oral intake. PHYSICAL EXAMINATION OF DAY OF DISCHARGE: Vital Signs: Temperature 98, blood pressure 110/60, pulse 58, respirations 16, room air saturation 99%. General: Well nourished, no acute distress, appears comfortable. Skin: Warm and dry. Heart: Regular rate and rhythm. Lungs: Clear to auscultation. Abdomen: Bowel sounds present, normal. Midline incision and laparoscopic incision port sites healing well without evidence of infection. There is a small open wound at the inferior aspect of the midline incision (intentional). There is a small amount of serosanguineous drainage present, dressing is replaced. The Severiano-Rowell drainage was measured at 180 mL for the previous 24 hours. It was serosanguineous and clear. Abdominal exam was notable for no significant tenderness to palpation other than some mild incisional tenderness in the midline. IMPRESSION: Status post laparoscopy, converted to laparotomy for appendectomy and drainage of intra-abdominal abscess and removal of fecalith. PLAN: The patient is discharged today to home. She will complete 10 days additional of oral antibiotics based on sensitivities: Clindamycin 300 mg t.i.d. and Ceftin 500 mg b.i.d. She will be seen in our office for followup on 07/04/17 for possible drain removal at that time. ANKIT MIRANDA [id number]/[facility] #: [id number] [place]
== END 2017-06-30 15:40 | disposition home or self-care (01) | DRG 339 ==
LOC: ED 12:03 → SSU 22:20 → OBSVTOIN 06-26 09:00
PROVIDERS: ADMIT Surgery; ATTEND Surgery
PROC: 0DTJ0ZZ Resection of Appendix, Open Approach (ICD-10-PCS; principal; 2017-06-26)
PROC: 0D9J40Z Drainage of Appendix with Drainage Device, Percutaneous Endoscopic Approach (ICD-10-PCS; 2017-06-26)
DX: K35.3 Acute appendicitis with localized peritonitis (principal); B95.4 Other streptococcus as the cause of diseases classified elsewhere; B96.20 Unspecified Escherichia coli [E. coli] as the cause of diseases classified elsewhere; K56.7 Ileus, unspecified; R51 Headache; Z80.8 Family history of malignant neoplasm of other organs or systems; Z81.8 Family history of other mental and behavioral disorders; Z83.3 Family history of diabetes mellitus; Z87.891 Personal history of nicotine dependence; Z53.31 Laparoscopic surgical procedure converted to open procedure
CPT/HCPCS: 36415; 49406; 71010; 74177; 76705; 80048; 80053; 81003; 81015; 82272; 83605; 83630; 83690; 83735; 84702; 85025; 85730; 86140; 87040; 87045; 87046; 87070; 87073; 87076; 87077; 87086; 87177; 87185; 87186; 87205; 87209; 87328; 87329; 87640; 87641; 87899; 88300; 88304; 94760; A9270-GY; J0330; J0744; J1100; J1170; J1644; J1885; J2250; J2270; J2405; J2704; J2765; J3010; J3490; Q9967